=== PATIENT | female | born 1955 | race Caucasian/White ===

== ENCOUNTER → 2019-05-07 | Outpatient (CLI) | payer MEDICARE, OTHER ==
--- NOTE | 2019-05-07 14:55 | Diagnostic Imaging Report ---
TECHNIQUE: Magnetic resonance imaging of the RIGHT KNEE was performed WITHOUT injected contrast. HISTORY: Right knee pain COMPARISON: None available. FINDINGS: LIGAMENTS AND TENDONS: ACL: Mild mucoid degeneration PCL: Intact Collateral ligaments: Intact Iliotibial band: Unremarkable Popliteal tendon: Intact Extensor mechanism: Intact JOINT: Menisci: Medial: Complex tearing of the posterior horn with horizontal and radial component. Lateral: Degeneration of the anterior horn Articular Cartilage: Medial Compartment: Partial-thickness cartilage loss with subchondral edema at the medial joint line. Lateral Compartment: No focal defect. Patellofemoral Compartment: Partial-thickness cartilage loss Joint Fluid: Joint effusion BONE: No acute fracture. SOFT TISSUES: Otherwise, unremarkable. IMPRESSION: Medial meniscus complex tearing of the posterior horn with medial compartment partial-thickness cartilage loss. Joint effusion. Signed by: Dr. Davy Chandler M.D. on 05/07/2019 2:52 PM
== END ==
LOC: MRI 13:36
PROVIDERS: ATTEND Family Medicine
DX: M23.306 Other meniscus derangements, unspecified meniscus, right knee (principal)